=== PATIENT | female | born 1945 | race Asian ===

== ENCOUNTER → 2017-04-28 | Day surgery (SDC) | payer BC ==
--- NOTE | 2017-04-30 08:05 | PATH ---
Cytology Non-Gynecological Report Patient Name: ZEB BUENO [facility] Rec. #: [id number] /Age/Gender: 1945 (Age: 71) / F Account: [id number] Location: RADIOLOGY Taken: 04/28/2017 Received: 04/28/2017 Reported: 04/30/2017 Physicians: Richard Keller M.D. Specimen(s) Received LEFT THYROID FNA Clinical History Left thyroid nodule, 2.4 x 2.0 x 1.8 cm Final Diagnosis THYROID GLAND, LEFT LOBE, US GUIDED FINE NEEDLE ASPIRATION BIOPSY: LOW CELLARITY, SATISFACTORY FOR EVALUATION DUE TO THE PRESENCE OF COLLOID. SCATTERED FOLLICULAR EPITHELIAL CELLS WITH HURTHLE CELL CHANGE, CYST LINING CELLS, COLLOID AND NUMEROUS MACROPHAGES, MOST CONSISTENT WITH NODULAR GOITER WITH CYSTIC CHANGE (BETHESDA CATEGORY II, BENING), SEE COMMENT. Comment: The smears and the cell block show scattered follicular epithelial cells with Hurthle cell (oncocytic) change, cyst lining cells and colloid; numerous macrophages are present indicative of cystic change. The findings are most consistent with nodular goiter with cystic change. Clinical and imaging correlations are suggested. Electronically Signed J Carlos Johnson M.D. Gross Description Received are four air dried smears, four smears in 95% alcohol, and 20 cc of bloody fluid in formalin. Four diff-quik stained slides, four Pap stained slides and one cell block are made.
== END | disposition home or self-care (01) ==
LOC: JRADIR 09:00
PROVIDERS: ATTEND Internal Medicine Endocrinology, Diabetes & Metabolism
PROC: 0GBG3ZX Excision of Left Thyroid Gland Lobe, Percutaneous Approach, Diagnostic (ICD-10-PCS; principal; 2017-04-28)
PROC: BG44ZZZ Ultrasonography of Thyroid Gland (ICD-10-PCS; 2017-04-28)
DX: E04.1 Nontoxic single thyroid nodule (principal)
CPT/HCPCS: 10022; 76942; 88173; 88305-TC

== ENCOUNTER 2017-06-23 09:09 | Day surgery (SDC) | payer BC ==
[2017-06-19 10:29] VITALS: BMI 25.7
--- NOTE | 2017-06-23 11:35 | HP ---
History & Physical Update - History History: No Change - Physical Physical: No Change - Assessment Assessment: No Change - Plan Plan: No Change (Consent signed and witnessed)
[2017-06-23] MEDS ORDERED: SUCCINYLCHOLINE CHLORIDE 200 MG/10 ML VIAL ONE (11:59)
[2017-06-23] MEDS ORDERED: ONDANSETRON 4 MG/2 ML VIAL IVPB PRN (12:44)
[2017-06-23] MEDS ORDERED: IBUPROFEN 800 MG/8 ML IJ IVPB PRN (12:44)
[2017-06-23] MEDS ORDERED: IBUPROFEN 600 MG TABLET (FP) PO PRN (12:44)
[2017-06-23] MEDS ORDERED: ELECTROLYTE-148 SOLN 1,000 ML IV SCH (12:45)
[2017-06-23] MEDS ORDERED: PROMETHAZINE HCL 25 MG/1 ML VIAL IVPUSH PRN (12:52)
[2017-06-23] MEDS ORDERED: oxyCODONE HCL 5 MG TABLET PO PRN (12:52)
--- NOTE | 2017-06-23 12:53 | OP ---
Operative Note - Note: Operative Date: 06/23/17 Pre-Operative Diagnosis: 71yo P4 with 11mm endometrium, negative endometrial biopsy Operation: Hysteroscopy/Polypectomy/D&C Findings: 1. 2.5cm posterior endometrial wall polyp 2. R ostia 1cm polyp 3. L lower uterine segment lateral 1cm polyp 4. Bl ostia visualized Post-Operative Diagnosis: Same as Pre-op (multiple endometrial polyps) Surgeon: Maribel Mcdaniel Anesthesiologist/WRAPPER COUNTER: Jonelle Milsl MD Anesthesia: General Specimens Removed: 1. Engometrial polyps x 3 removed with Pérez-Clear device. 2. Endometrial curettings Estimated Blood Loss (mls): 0 Instrument used (Debridements only): Pérez-Clear Drains, Volume Out (mls): 150 Fluid Volume Replaced (mls): 500 Operative Report Dictated: Yes
[2017-06-23 14:23] VITALS: TEMP 97.8
[2017-06-23 15:47] VITALS: BP 170/59; PULSE 59
--- NOTE | 2017-06-24 13:00 | PATH ---
Surgical Pathology Report Patient Name: ZEB BUENO [facility]. Rec. #: [id number] /Age/Gender: 1945 (Age: 71) / F Account: [id number] Location: [facility] SURGICAL Taken: 06/23/2017 Received: 06/23/2017 Reported: 06/24/2017 Physicians: Maribel Mcdaniel M.D. Specimen(s) Received A: ENDOMETRIAL CURETTINGS B: ENDOMETRIAL POLYPS 3 Clinical History Endometrial thickening Final Diagnosis A. ENDOMETRIUM, CURETTING: GLANDULAR EPITHELIUM CONSISTENT WITH ATROPHIC ENDOMETRIUM, ALONG WITH ABUNDANT MUCINOUS MATERIAL, ENDOCERVICAL EPITHELIUM, AND SQUAMOUS EPITHELIUM. NO ENDOMETRIAL HYPERPLASIA OR CARCINOMA IDENTIFIED. B. ENDOMETRIUM, POLYPECTOMY: BENIGN ENDOMETRIAL POLYP. Electronically Signed Shilo Fitch M.D. Gross Description A. Received in formalin labelled "endometrial curetting" is a 2.0 x 2.0 x 0.3 cm aggregate of mucoid material with shay tissue fragments. Totally submitted in one cassette. B. Received in formalin labelled "endometrial polyps " is a 0.4 cm greatest dimension aggregate of vallejo material. Totally submitted in one cassette [facility]/06/23/2017 [facility]/06/23/2017
--- NOTE | 2017-06-25 08:35 | OP ---
DATE OF OPERATION: 06/23/2017 PREOPERATIVE DIAGNOSIS: A 71-year-old para 4 with 11-mm thickened endometrium and negative endometrial biopsy. POSTOPERATIVE DIAGNOSES: 1. A 71-year-old para 4 with 11-mm thickened endometrium and negative endometrial biopsy. 2. Finding of 3 endometrial polyps. OPERATION: Hysteroscopy, polypectomy, dilatation and curettage. FINDINGS: A 2.5-cm posterior endometrial wall polyp, right ostia 1-cm polyp, and left lower uterine segment lateral 1-cm polyp. Bilateral ostia visualized. SURGEON: Maribel Mcdaniel MD ANESTHESIOLOGIST: Jonelle Mills MD ANESTHESIA: General. SPECIMENS REMOVED: Endometrial polyps x3 with TruClear device, and second specimen was endometrial curettings. DESCRIPTION OF OPERATIVE PROCEDURE: After ensuring informed consent, patient was brought to the operating room where she was placed in dorsal lithotomy position. Perineum and vagina were prepped in a sterile fashion, and patient was draped. The TruClear hysteroscope device was assembled, white balanced, and ready for use. The [place] speculums were placed into the vagina, and anterior cervical lip was articulated with a single-tooth tenaculum. Cervix was gradually dilated with increasing-in- size dilators to accommodate 5-mm hysteroscope. The hysteroscope was introduced atraumatically, and intrauterine contents were surveyed. The above findings were discovered. TruClear device was placed through the surgical port, and approximately 1 minute was spent to removing all 3 polyps with TruClear resectoscope. All of the intrauterine contents were resected polyps, were suctioned and sent to Pathology. Hysteroscope was removed from the uterus, and sharp curettage was performed with the serrated sharp curette. Endometrial curettings were sent to Pathology as well. All instruments and sponges were removed from the vagina. Instrument count was correct x2. Patient was placed back into the supine position, extubated, and brought to the recovery room in stable condition. Estimated blood loss 0 mL. Patient's urine was drained, 150 mL, intraoperatively, and patient received 500 mL of Plasmalyte. Patient tolerated the procedure well and was brought to the recovery room in stable condition. Richard [id number] MTDD
== END 2017-06-23 15:47 | disposition home or self-care (01) ==
LOC: JASU-SURG 09:09
PROVIDERS: ATTEND Obstetrics & Gynecology
PROC: 0UB98ZX Excision of Uterus, Via Natural or Artificial Opening Endoscopic, Diagnostic (ICD-10-PCS; principal; 2017-06-23 11:00)
PROC: 0UDB8ZX Extraction of Endometrium, Via Natural or Artificial Opening Endoscopic, Diagnostic (ICD-10-PCS; 2017-06-23 11:00)
DX: N84.0 Polyp of corpus uteri (principal); R93.8 Abnormal findings on diagnostic imaging of other specified body structures
CPT/HCPCS: 71020-TC; 88305-TC; 94760

== ENCOUNTER → 2018-11-27 | Emergency (ER) | payer BC ==
[~2018-11-27] MED LIST: ACETAMINOPHEN 1000 MG/100 ML VIAL (NON FORMULARY) IVPB ONE; ACETAMINOPHEN INJECTION 100 ML IVPB ONE; LOSARTAN 50MG/HCTZ 12.5MG 1 TAB (FP) PO ONE; SODIUM CHLORIDE 0.9% 500 ML INFUS.BAG IV ONE
[2018-11-27 12:04] VITALS: BMI 25.2
--- NOTE | 2018-11-27 12:58 | PDOC ---
History of Present Illness - General Chief Complaint: Weakness Stated Complaint: WEAKNESS,DIZZINESS Time Seen by Provider: 11/27/18 12:33 History Source: Patient - History of Present Illness Initial Comments: 11/27/18 13:40 The patient is a 73 year old Tajik speaking female with a PMH of HTN, HLD-- who presents to our ED c/o acute onset of vertigo. Daughter and son @ bedside assist in translation and history. Symptoms started suddenly while patient was in the kitchen cooking. Endorse 1-2 episodes of NBNB emesis. Symptoms resolved within 20 minutes, however patient now c/o headache. Denies any chest pain, shortness of breath, numbness, tingling. Similar symptoms five years previous for which patient was evaluated at our ED. The patient denies shortness of breath, abdominal pain, nausea/vomiting, diarrhea/constipation NKDA Surgical Social: denies toxic habits Past History - Past Medical History Allergies/Adverse Reactions: Allergies Allergy/AdvReac Type Severity Reaction Status Date / Time No Known Allergies Allergy Verified 11/27/18 11:58 Home Medications: Ambulatory Orders Atorvastatin Ca [Lipitor (Restricted To Cardiology)] 40 mg PO HS 02/08/13 [place]-3 Acid Ethyl Esters [Lovaza] 1,000 mg PO BID 02/08/13 Losartan/Hydrochlorothiazide [Losartan-Hctz 50-12.5 mg Tab] 1 each PO DAILY Amlodipine Besylate [Norvasc -] 2.5 mg PO DAILY 06/23/17 Aspirin/Calcium Carbonate/Mag [Aspirin Buffered 325 mg Tab] 325 mg PO DAILY Multivit-Min/Iron/Folic/Lutein [Centrum Silver Women Tablet] 1 each PO DAILY Vit C/E/Zn/Coppr/Lutein/Zeaxan [Preservision Areds 2 Softgel] 2 each PO DAILY Anemia: No Asthma: No Cancer: No Cardiac Disorders: Yes (BYPASS) CVA: No COPD: No CHF: No Dementia: No Diabetes: No GI Disorders: No Disorders: No HTN: Yes Hypercholesterolemia: Yes Liver Disease: No Seizures: No Thyroid Disease: No - Surgical History Abdominal Surgery: No Appendectomy: No Cardiac Surgery: Yes (bypass 2 YRS AGO) Cholecystectomy: No Lung Surgery: No Neurologic Surgery: No Orthopedic Surgery: No - Immunization History Immunization Up to Date: Yes - Suicide/Smoking/Psychosocial Hx Smoking Status: No Smoking History: Never smoked Have you smoked in the past 12 months: No Number of Cigarettes Smoked Daily: 0 Hx Alcohol Use: No Drug/Substance Use Hx: No Substance Use Type: None Hx Substance Use Treatment: No Review of Systems - Review of Systems Constitutional: No: Chills, Fever HEENTM: No: Blurred Vision, Double Vision, Tinnitus, Hearing Loss Respiratory: No: Cough, Shortness of Breath Cardiac (ROS): No: Chest Pain, Lightheadedness, Palpitations, Syncope ABD/GI: Yes: Vomiting. No: Constipated, Diarrhea, Nausea : No: Burning, Dysuria Neurological: Yes: Headache, Dizziness. No: Numbness, Tingling, Unsteady Gait *Physical Exam - Vital Signs Last Vital Signs Temp Pulse Resp BP Pulse Ox 97.3 F L 75 18 201/70 H 99 11/27/18 11:56 11/27/18 11:56 11/27/18 11:56 11/27/18 11:56 11/27/18 11:56 - Physical Exam General Appearance: Yes: Nourished, Appropriately Dressed HEENT: positive: EOMI, ALEJANDRA, Normal Voice, Hearing Grossly Normal. negative: TM Bulging, TM Dull, TM Erythema Neck: positive: Trachea midline, Supple Respiratory/Chest: positive: Lungs Clear, Normal Breath Sounds Cardiovascular: positive: Regular Rate, S1, S2. negative: Edema, JVD Vascular Pulses: Dorsalis-Pedis (R): 2+, Doralis-Pedis (L): 2+ Gastrointestinal/Abdominal: positive: Normal Bowel Sounds, Soft Extremity: positive: Normal Capillary Refill, Normal Inspection Integumentary: positive: Normal Color, Dry, Warm Neurologic: positive: Fully Oriented, Alert, Motor Strength 5/5, Responsive, Finger to Nose. negative: Facial Droop, Numbness, Confused, Disoriented Moderate Sedation - Procedure Monitoring Vital Signs: Procedure Monitoring Vital Signs Temperature 97.3 F L 11/27/18 11:56 Pulse Rate 75 11/27/18 11:56 Respiratory Rate 18 11/27/18 11:56 Blood Pressure 201/70 H 11/27/18 11:56 O2 Sat by Pulse Oximetry (%) 99 11/27/18 11:56 Heart Score/ECG Review - ECG Impressions Comment:: 11/27/18 16:22 HR 72, TWI in anterior leads V1-V3 c/w previous ECG, no SENAIT/STD ED Treatment Course - LABORATORY CBC & Chemistry Diagram: 11/27/18 15:07 11/27/18 15:07 - RADIOLOGY Radiology Studies Ordered: Category Date Time Status HEAD CT WITHOUT CONTRAST [CT] Stat CT Scan 11/27/18 12:56 Ordered Medical Decision Making - Medical Decision Making 11/27/18 13:45 73 year old female with resolved vertinginous episode. Hypertense (201/70) @ presentation. No focal neurologic deficit on exam. NIHSS 1. Frontal diagnosis : cerebellar infarct vs. CVA/TIA vs. vertigo 2/2 to dehydration, electrolyte derangement. Will obtain CT Head, labs, EKG, Troponin x1, Reassess. 189/56 11/27/18 14:[address] negative 11/27/18 15:02 Repeat BP 166/68 Will give OTD of home BP medications 11/27/18 16:01 Labs show mild hyponatremia (134) 11/27/18 16:12 ECG shows Sinus Rhythm HR 72, with 1st degree AV block, ECG shows TWI in V1-V3, c/w previous ECG 11/27/18 16:22 UA clean Repeat BP 161/58 - patient will follow-up with PMD. Clinical Impression: Resolved vertigo I discussed the physical exam findings, ancillary test results and final diagnoses with the patient. I answered all of the patient's questions. The patient was satisfied with the care received and felt comfortable with the discharge plan and treatment plan. The patient will return to the Emergency Department with any new, persistent or worsening symptoms. *DC/Admit/Observation/Transfer Diagnosis at time of Disposition: Vertigo - Discharge Dispostion Disposition: HOME Condition at time of disposition: Good Decision to Admit order: No - Referrals Referrals: John Burdick MD [Primary Care Provider] - - Patient Instructions Printed Discharge Instructions: DI for Vertigo, DI for Neck Pain Additional Instructions: You were evaluated today for your dizziness. A cat scan of your head, your labs and your urine showed no concerning findings. At this time you are safe for discharge home. Please make an appointment to follow up with your primary care doctor for evaluation including assessment of your neck pain. You can take Motrin (up to 3200 mg daily) alternating w/ Tylenol (up to 4000 mg daily) for your pain. Return to the Emergency Department for any new/worsening/concerning symptoms. - Post Discharge Activity
--- NOTE | 2018-11-27 12:59 | PDOC ---
NIH Stroke Scale - Initial Evaluation Level of consciousness: Alert Ask patient the month and their age: Answers both correctly Ask patient to open & close eyes; make fist and let go: Obeys both correctly Best gaze (horizontal eye movement): Normal Visual field testing: No visual field loss Facial paresis (Show teeth/raise eyebrows/close eyes tight): Normal symmetrical movement Motor Function: Left Arm: Normal Motor Function: Right Arm: Normal (extends arm 90 (or 45) degrees for 10 seconds without drift Motor Function: Left Leg: Normal (extends leg 30 degrees for 5 seconds without drift) Motor Function: Right Leg: Normal (extends leg 30 degrees for 5 seconds without drift) Limb Ataxia: No ataxia Sensory(Use pinprick test arms,legs,trunk,face/side to side): Normal Best language (Describe picture, name items, read sentences): No Aphasia Dysarthria (read several words): Normal articulation Extinction and Inattention: No abnormality - Total Score NIH Stroke Scale Score: 0
[2018-11-27 15:01] LABS: URINE APPEARANCE CLEAR; URINE BILIRUBIN NEGATIVE (<2.0 mg/dL); URINE COLOR STRAW; URINE GLUCOSE (UA) NEGATIVE (NEGATIVE); URINE KETONE NEGATIVE (NEGATIVE); URINE LEUK ESTERASE NEGATIVE (NEGATIVE); URINE NITRITE NEGATIVE (NEGATIVE); URINE PROTEIN NEGATIVE (NEGATIVE); URINE UROBILINOGEN NEGATIVE mg/dL (0.2-1.0)
--- NOTE | 2018-11-27 15:10 | PDOC ---
Attending Attestation - HPI HPI: 11/27/18 16:00 73 y/o female presents to ED with son and daughter for evaluation of sudden onset of dizziness, with nausea and vomiting and now headache. Pt with h/o htn, hypothyroidism and vertigo. Pt did not take any pf her meds today, Pt is non toxic in appearance, folowing comands, feels a little better at present - Physicial Exam PE: 11/27/18 16:02 HEENT: NCAT, CHYNA, EOMI, no nystagmus Neck: supple Lungs: + bs krystal cta Heart: s1S2 regular Abd: + bs abd soft no guarding or tenderness Ext; + bs abd soft no guarding or tenderness Neuro: alert and oriented x3, britton's , no focal deficits, possible slight pronator drift on left side, nl finger t nose, cn 2-12 grossly intact - Medical Decision Making 11/27/18 16:04 73 y/o female here in ED for eval of sudden onset of dizziness started while cooking today. Pt with NIHSS of 0 or possibly one for slight drift will obtain ct of head, cbc, cmp, ekg, trop, cxr , and reevaluated. Pt's b/pactually improved with no intervention, After ct resultes reviewed, pt given her regular dose of losartan. Pt was feeling better ,pt ambulated in ED by Resident and pt stable for dc home with out pt f/u with pcp 11/27/18 16:06 11/27/18 23:44
[2018-11-27 15:17] VITALS: BP 130/88; PULSE 80; TEMP 98.3
[2018-11-27 15:18] LABS: BASO % 0.4 % (0-2.0); EOS % 0.8 % (0-4.5); HEMOGLOBIN 11.8 GM/dL (10.7-15.3); LYMPH % 18.7 % (8-40); MCH 30.4 pg (25.7-33.7); MCHC 35.7 g/dl (32.0-36.0); MEAN PLT VOLUME 7.1 fl (7.5-11.1); MONO % 3.3 % (3.8-10.2); NEUT % 76.8 % (42.8-82.8); PLATELET COUNT 276 K/MM3 (134-434); RBC 3.88 M/mm3 (3.60-5.2); RDW 13.5 % (11.6-15.6); WHITE BLOOD COUNT 8.4 K/mm3 (4.0-10.0)
[2018-11-27 15:50] LABS: ANION GAP 7 MMOL/L (8-16); BLOOD UREA NITROGEN 22 mg/dL (7-18); CALCIUM 8.4 mg/dL (8.5-10.1); CHLORIDE 99 mmol/L (98-107); CO2 29 mmol/L (21-32); GLUCOSE,RANDOM 98 mg/dL (74-106); POTASSIUM 4.3 mmol/L (3.5-5.1); SODIUM 134 mmol/L (136-145)
[2018-11-27 15:51] LABS: ALBUMIN 3.6 g/dl (3.4-5.0); ALK PHOS 90 U/L (45-117); BILIRUBIN,TOTAL 0.4 mg/dL (0.2-1); MAGNESIUM 2.1 mg/dL (1.8-2.4); SGOT/AST 28 U/L (15-37); SGPT/ALT 27 U/L (13-61); TOT PROT 7.5 g/dl (6.4-8.2)
--- NOTE | 2018-11-28 11:27 | EKG ---
Test Reason : Blood Pressure : / mmHG Vent. Rate : 072 BPM Atrial Rate : 072 BPM P-R Int : 220 ms QRS Dur : 086 ms QT Int : 396 ms P-R-T Axes : 066 032 021 degrees QTc Int : 433 ms SINUS RHYTHM WITH 1ST DEGREE A-V BLOCK NONSPECIFIC T WAVE ABNORMALITY ABNORMAL ECG WHEN COMPARED WITH ECG OF 28-DEC-2015 20:33, PREMATURE ATRIAL COMPLEXES ARE NO LONGER PRESENT TX INTERVAL HAS INCREASED NONSPECIFIC T WAVE ABNORMALITY NO LONGER EVIDENT IN LATERAL LEADS Confirmed by REENA WOOD MD ([id number]) on 11/28/2018 11:27:00 AM Referred By: Confirmed By:REENA WOOD MD
== END | disposition home or self-care (01) ==
LOC: JER 11:43
PROC: 3E033NZ Introduction of Analgesics, Hypnotics, Sedatives into Peripheral Vein, Percutaneous Approach (ICD-10-PCS; principal; 2018-11-27)
DX: R42 Dizziness and giddiness (principal); I25.10 Atherosclerotic heart disease of native coronary artery without angina pectoris; I10 Essential (primary) hypertension; Z95.1 Presence of aortocoronary bypass graft; E87.1 Hypo-osmolality and hyponatremia
CPT/HCPCS: 36415; 70450-TC; 80053; 81003; 82550; 83735; 84484; 85025; 87086; 87186; 93005; 93010; 99284-25; J0131

== ENCOUNTER 2019-04-04 20:03 | Emergency (ER) | payer OTHER, BC ==
[2019-04-04 20:08] VITALS: TEMP 97.6; BMI 23.3
--- NOTE | 2019-04-04 21:08 | PDOC ---
History of Present Illness - General Chief Complaint: Headache Stated Complaint: HIGH BLOOD PRESURE Time Seen by Provider: 04/04/19 21:03 History Source: Patient - History of Present Illness Initial Comments: 04/04/19 21:22 The patient is a 73 year old female with a PMH of Hypothyroidism, Vertigo, Tinnitus, CAD (s/p CABG in 2012) and hearing loss presents to our ED c/o 2-3 day h/o weakness. Patient states for the last few days she has had less energy though she is able to complete her ADL's. Denies associated shortness of breath or chest pain. Was evaluated at her ENT office today for her tinnitus and pressure was noted to be 180/100 and she decided to come to the ED. MRI in Denies any recent weight loss, appetite changes, medication changes, abdominal pain, nausea/vomiting, diarrhea/constipation, dysuria/hematuria. NKDA Surgical: CABG Social: denies toxic habits PMD: Dr. Burdick As per EMR, MRI on 02/22/19 negative for acute ischemia, hemmorhage or demylination. Patient last evaluated in our ED in 10/2018 for a c/o weakness with associated emesis. Head CT and labs negative at that time. Past History - Past Medical History Allergies/Adverse Reactions: Allergies Allergy/AdvReac Type Severity Reaction Status Date / Time No Known Allergies Allergy Verified 04/04/19 20:08 Home Medications: Ambulatory Orders Atorvastatin Ca [Lipitor (Restricted To Cardiology)] 40 mg PO HS 02/08/13 [place]-3 Acid Ethyl Esters [Lovaza] 1,000 mg PO BID 02/08/13 Losartan/Hydrochlorothiazide [Losartan-Hctz 50-12.5 mg Tab] 1 each PO DAILY Amlodipine Besylate [Norvasc -] 2.5 mg PO DAILY 06/23/17 Aspirin/Calcium Carbonate/Mag [Aspirin Buffered 325 mg Tab] 325 mg PO DAILY Multivit-Min/Iron/Folic/Lutein [Centrum Silver Women Tablet] 1 each PO DAILY Vit C/E/Zn/Coppr/Lutein/Zeaxan [Preservision Areds 2 Softgel] 2 each PO DAILY Anemia: No Asthma: No Cancer: No Cardiac Disorders: Yes (BYPASS) CVA: No COPD: No CHF: No Dementia: No Diabetes: No GI Disorders: No Disorders: No HTN: Yes Hypercholesterolemia: Yes Liver Disease: No Seizures: No Thyroid Disease: No - Surgical History Abdominal Surgery: No Appendectomy: No Cardiac Surgery: Yes (bypass 2 YRS AGO) Cholecystectomy: No Lung Surgery: No Neurologic Surgery: No Orthopedic Surgery: No - Immunization History Immunization Up to Date: Yes - Suicide/Smoking/Psychosocial Hx Smoking Status: No Smoking History: Never smoked Have you smoked in the past 12 months: No Number of Cigarettes Smoked Daily: 0 Hx Alcohol Use: No Drug/Substance Use Hx: No Substance Use Type: None Hx Substance Use Treatment: No Review of Systems - Review of Systems Constitutional: No: Chills, Fever HEENTM: No: Recent change in vision Respiratory: No: Cough, Shortness of Breath Cardiac (ROS): No: Chest Pain, Lightheadedness, Palpitations, Syncope ABD/GI: No: Constipated, Diarrhea, Nausea, Vomiting *Physical Exam - Vital Signs Last Vital Signs Temp Pulse Resp BP Pulse Ox 97.6 F 78 18 124/67 99 04/04/19 20:05 04/04/19 20:05 04/04/19 20:05 04/04/19 20:05 04/04/19 20:05 - Physical Exam Comments: 04/04/19 22:25 Awake, alert CV: S1, S2 no M/R/G Respiratory: CLTA B/L, no wheeze, no crack Neuro: [place]-Hallpike negative, A&O x3, no focal neurologic deficit B/L Abdomen: soft, no TTP, (+) BS ED Treatment Course - LABORATORY CBC & Chemistry Diagram: 04/04/19 21:55 04/04/19 21:55 Medical Decision Making - Medical Decision Making 04/04/19 22:26 73 year old female with 2-3 day h/o weakness. VS unremarkable. H/o hypertensive episode (180/100) earlier today. Recent brain MRI negative. Will r/o ACS, electrolyte derangement, anemia. IV hydration. Low clinical suspicion for CVA/TIA given patient's clinical presentation and h/o negative MRI on 03/25/19. 04/04/19 22:29 Patient reassessed @ bedside. Symptomatically improved CBC shows no anemia CMP, Troponin EKG, CXR pending 04/04/19 22:46 Mildly hyponatremic (130) Troponin negative EKG non-ischemic as documented in EKG section of EMR CXR shows no consolidation/infiltrate/effusion Will discharge home with return precautions and PMD follow-up for further evaluation. Neurology referral provided for headaches. Clinical Impression: Weakness possibly 2/2 to mild hyponatremia I discussed the physical exam findings, lab results, diagnoses with the patient. The patient understood her discharge instructions and will follow up with her primary care doctor for further evaluation. Patient will return to the Emergency Department for any new/worsening/concerning symptoms. *DC/Admit/Observation/Transfer Diagnosis at time of Disposition: Weakness - Discharge Dispostion Disposition: HOME Condition at time of disposition: Good Decision to Admit order: No - Referrals Referrals: John Burdick MD [Primary Care Provider] - Addison Simon MD [Staff Physician] - - Patient Instructions Printed Discharge Instructions: DI for Headache Additional Instructions: You were evaluated today for your weakness. All of your labs, a chest x-ray and an EKG showed no findings concerning for a medical emergency At this time you are safe for discharge home. We have provided a referral to a neurologist for your headaches. You can also call your insurance company for a list of doctors. Please make a follow up appointment within 3 days with your primary care doctor. Your care is not complete until you are evaluated by a primary care doctor. Return to the Emergency Department for any new/worsening/concerning symptoms. - Post Discharge Activity
[2019-04-04] MEDS ORDERED: ACETAMINOPHEN 1000 MG/100 ML VIAL (NON FORMULARY) IVPB ONE (21:22)
[2019-04-04] MEDS ORDERED: SODIUM CHLORIDE 0.9% 500 ML INFUS.BAG IV ONE (21:22)
[2019-04-04] MEDS ORDERED: ACETAMINOPHEN INJECTION 100 ML IVPB ONE (21:42)
[2019-04-04 22:11] LABS: BASO % 0.5 % (0-2.0); EOS % 2.3 % (0-4.5); HEMATOCRIT 35.1 % (32.4-45.2); HEMOGLOBIN 11.7 GM/dL (10.7-15.3); LYMPH % 32.6 % (8-40); MCH 28.9 pg (25.7-33.7); MCHC 33.4 g/dl (32.0-36.0); MEAN CELL VOLUME 86.4 fl (80-96); MEAN PLT VOLUME 7.2 fl (7.5-11.1); MONO % 7.2 % (3.8-10.2); NEUT % 57.4 % (42.8-82.8); PLATELET COUNT 298 K/MM3 (134-434); RBC 4.07 M/mm3 (3.60-5.2); RDW 13.5 % (11.6-15.6)
[2019-04-04 22:31] LABS: MAGNESIUM 1.9 mg/dL (1.8-2.4)
[2019-04-04 22:40] LABS: ALBUMIN 3.7 g/dl (3.4-5.0); ALK PHOS 88 U/L (45-117); ANION GAP 9 MMOL/L (8-16); BILIRUBIN,TOTAL 0.3 mg/dL (0.2-1); BLOOD UREA NITROGEN 18 mg/dL (7-18); CALCIUM 9.3 mg/dL (8.5-10.1); CHLORIDE 96 mmol/L (98-107); CO2 26 mmol/L (21-32); CREATININE 0.8 mg/dL (0.55-1.3); GLUCOSE,RANDOM 96 mg/dL (74-106); SGOT/AST 23 U/L (15-37); SGPT/ALT 22 U/L (13-61); SODIUM 130 mmol/L (136-145); TOT PROT 7.8 g/dl (6.4-8.2)
--- NOTE | 2019-04-04 23:47 | PDOC ---
Documentation entered by Autumn Lloyd SCRIBE, acting as scribe for Raquel Brownlee MD. Raquel Brownlee MD: This documentation has been prepared by the Gabino cooley Xhesika, SCRIBE, under my direction and personally reviewed by me in its entirety. I confirm that the documentation accurately reflects all work, treatment, procedures, and medical decision making performed by me. Attending Attestation - Resident Resident Name: Dianelys Anand - ED Attending Attestation I have performed the following: I have examined & evaluated the patient, The case was reviewed & discussed with the resident, I agree w/resident's findings & plan, Exceptions are as noted - HPI HPI: 04/04/19 21:47 The patient is a 73 year old female, with a significant past medical history of Hypothyroidism, Vertigo, CAD (s/p CABG in 2012) and hearing loss who presents to the emergency department with 3 days of weakness. The patient states she has been experiencing less energy, however, she is able to complete her ADL's. The patient was at her ENTs office today for vertigo and her blood pressure was 180/100 prompting her arrival to the ED. The patient denies shortness of breath, chest pain headache or dizziness. The patient denies fever, chills, nausea, vomit, diarrhea or constipation. The patient denies dysuria, frequency, urgency or hematuria. Allergies: NKDA. Past surgical history: CABG Social history: No reported drug or cigarette use. PCP: Dr. Burdick - Physicial Exam PE: 04/04/19 21:47 GENERAL: Awake, alert, and fully oriented, in no acute distress HEAD: No signs of trauma EYES: PERRLA, EOMI, sclera anicteric, conjunctiva clear ENT: Auricles normal inspection, hearing grossly normal, nares patent, oropharynx clear without exudates. Moist mucosa NECK: Normal ROM, supple, no lymphadenopathy, JVD, or masses LUNGS: Breath sounds equal, clear to auscultation bilaterally. No wheezes, and no crackles HEART: Regular rate and rhythm, normal S1 and S2, no murmurs, rubs or gallops ABDOMEN: Soft, nontender, normoactive bowel sounds. No guarding, no rebound. No masses EXTREMITIES: Normal range of motion, no edema. No clubbing or cyanosis. No cords, erythema, or tenderness NEUROLOGICAL: Cranial nerves II through XII grossly intact. Normal speech, normal gait - Medical Decision Making 04/04/19 23:43 this 73 yo female was at ENT's office for check up and she complained of headache and at that time her BP was elevated By the time she arrived at the ER her blood pressure was normal and her headache had resolved -she had a brain MRI this January and it was negative for any masses,swelling, bleeds,infarcts her labs were essentially unremarkable pt will followup with neurology for her headaches
[2019-04-05] MEDS ORDERED: amLODIPine BESYLATE 2.5 MG TABLET (FP) PO ONE (00:38)
[2019-04-05] MEDS ORDERED: amLODIPine BESYLATE 5 MG TABLET (FP) ONE (00:44)
[2019-04-05 00:45] VITALS: BP 192/76; PULSE 73
--- NOTE | 2019-04-05 11:38 | EKG ---
Test Reason : Blood Pressure : / mmHG Vent. Rate : 085 BPM Atrial Rate : 085 BPM P-R Int : 226 ms QRS Dur : 080 ms QT Int : 356 ms P-R-T Axes : 064 053 015 degrees QTc Int : 423 ms SINUS RHYTHM WITH 1ST DEGREE A-V BLOCK LOW VOLTAGE QRS NONSPECIFIC ST AND T WAVE ABNORMALITY ABNORMAL ECG Confirmed by Julian Hernandez MD ([id number]) on 04/05/2019 11:37:48 AM Referred By: Confirmed By:Julian Hernandez MD
== END 2019-04-05 01:00 | disposition home or self-care (01) ==
LOC: JER 20:03
PROC: 3E033NZ Introduction of Analgesics, Hypnotics, Sedatives into Peripheral Vein, Percutaneous Approach (ICD-10-PCS; principal; 2019-04-04)
DX: R53.1 Weakness (principal); E87.1 Hypo-osmolality and hyponatremia; I25.10 Atherosclerotic heart disease of native coronary artery without angina pectoris; I10 Essential (primary) hypertension; Z95.1 Presence of aortocoronary bypass graft; E78.00 Pure hypercholesterolemia, unspecified; H91.90 Unspecified hearing loss, unspecified ear; H93.19 Tinnitus, unspecified ear
CPT/HCPCS: 36415; 71046-TC-FY; 80053; 82550; 83735; 84443; 84484; 85025; 93005; 93010; 96374; 99283-25; J0131

== ENCOUNTER 2019-04-06 11:51 | Emergency (ER) | payer OTHER, BC ==
[2019-04-06 11:58] VITALS: TEMP 97.8; BMI 24.2
--- NOTE | 2019-04-06 14:45 | PDOC ---
History of Present Illness - General Chief Complaint: Lightheaded Stated Complaint: HYPERTENSION Time Seen by Provider: 04/06/19 13:02 History Source: Family, Spouse - History of Present Illness Initial Comments: 04/06/19 14:51 73 yo F with a PMHx of Hypothyroidism, Vertigo, Tinnitus, CAD (s/p CABG in 2012 ) presents to ER with complaint of lightheadedness and high blood pressure. She was seen in ER two days prior for the same issue. She states that for the past few months she has been awakening feeling lightheaded with headache and when she checks her BP it is approx. 180/90. Today her in ER BP is 140/79 and she is completely asymptomatic. However she is concerned about these high blood pressures. She denies CP, DAVIS, palpitations, SOB, abdominal pain, nausea, vomiting, fever or chills. Past History - Travel Traveled outside of the country in the last 30 days: No Close contact w/someone who was outside of country & ill: No - Past Medical History Allergies/Adverse Reactions: Allergies Allergy/AdvReac Type Severity Reaction Status Date / Time No Known Allergies Allergy Verified 04/06/19 11:53 Home Medications: Ambulatory Orders Harriet-3 Acid Ethyl Esters [Lovaza] 1,000 mg PO BID 02/08/13 Losartan/Hydrochlorothiazide [Losartan-Hctz 50-12.5 mg Tab] 1 each PO DAILY Multivit-Min/Iron/Folic/Lutein [Centrum Silver Women Tablet] 1 each PO DAILY Vit C/E/Zn/Coppr/Lutein/Zeaxan [Preservision Areds 2 Softgel] 2 each PO DAILY Aspirin [Ecotrin] 81 mg PO DAILY 04/06/19 Cholecalciferol (Vitamin D3) [Vitamin D3 -] 0 unit PO DAILY 04/06/19 Levothyroxine [Synthroid -] 88 mcg PO DAILY 04/06/19 Losartan Potassium 100 mg PO DAILY 04/06/19 Ranitidine HCl [Zantac] 150 mg PO DAILY 04/06/19 Anemia: No Asthma: No Cancer: No Cardiac Disorders: Yes (BYPASS) CVA: No COPD: No CHF: No Dementia: No Diabetes: No GI Disorders: No Disorders: No HTN: Yes Hypercholesterolemia: Yes Liver Disease: No Seizures: No Thyroid Disease: No - Surgical History Abdominal Surgery: No Appendectomy: No Cardiac Surgery: Yes (bypass 2 YRS AGO) Cholecystectomy: No Lung Surgery: No Neurologic Surgery: No Orthopedic Surgery: No - Immunization History Immunization Up to Date: Yes - Suicide/Smoking/Psychosocial Hx Smoking Status: No Smoking History: Never smoked Have you smoked in the past 12 months: No Number of Cigarettes Smoked Daily: 0 Hx Alcohol Use: No Drug/Substance Use Hx: No Substance Use Type: None Hx Substance Use Treatment: No Review of Systems - Review of Systems HEENTM: Yes: Hearing Loss (chronic) Respiratory: No: Cough, SOB with Exertion, SOB at Rest, Wheezing Cardiac (ROS): No: Chest Pain, Edema, Lightheadedness, Palpitations, Chest Tightness Neurological: No: Headache, Weakness *Physical Exam - Vital Signs Last Vital Signs Temp Pulse Resp BP Pulse Ox 97.8 F 79 18 141/59 L 99 04/06/19 11:53 04/06/19 11:53 04/06/19 11:53 04/06/19 11:53 04/06/19 11:53 - Physical Exam General Appearance: Yes: Appropriately Dressed. No: Apparent Distress HEENT: positive: ALEJANDRA, Normal Voice Neck: positive: Supple. negative: Tender Respiratory/Chest: positive: Lungs Clear, Normal Breath Sounds. negative: Respiratory Distress, Accessory Muscle Use Cardiovascular: positive: Regular Rhythm, Regular Rate, S1, S2 Vascular Pulses: Dorsalis-Pedis (R): 2+, Doralis-Pedis (L): 2+ Gastrointestinal/Abdominal: positive: Normal Bowel Sounds. negative: Tender, Flat, Soft Musculoskeletal: negative: CVA Tenderness Neurologic: positive: early childhood educator aide II-XII NML intact, Fully Oriented, Alert, Normal Mood/ Affect, Motor Strength /5 Medical Decision Making - Medical Decision Making 04/06/19 14:56 73 yo F with a PMHx of Hypothyroidism, Vertigo, Tinnitus, CAD (s/p CABG in 2012 ) presents to ER with complaint of lightheadedness and high blood pressure. She is completely asymptomatic at this time and BP WNL. I have placed a call to Dr. Burdick office her primary and her dump motorman Dr. Bravo and explained her situation. Dr. Burdick and Dr. Bravo are both not available until next week. However Dr. Burdick's office has assured my that they will call Dr. Burdick and make him aware and call her with any recommendations. She is stable for discharge with follow up with Primary AKILAH. *DC/Admit/Observation/Transfer Diagnosis at time of Disposition: Hypertension - Discharge Dispostion Disposition: HOME Condition at time of disposition: Stable Decision to Admit order: No - Referrals Referrals: John Burdick MD [Primary Care Provider] - - Patient Instructions Printed Discharge Instructions: The DASH Diet Additional Instructions: Dr. Burdick's office will be contacting you for further recommendations. Increase activity as tolerated. resume low sodium heart healthy diet(DASH).Resume all meds as previously prescribed. If you experience worsening of symptoms, chest pain or stoke like symptoms please return to ER immediately. - Post Discharge Activity
--- NOTE | 2019-04-06 15:12 | PDOC ---
Documentation entered by Jes Pool SCRIBE, acting as scribe for Camilo Henderson MD. Camilo Henderson MD: This documentation has been prepared by the Yrn cooley Amanda, SCRIBE, under my direction and personally reviewed by me in its entirety. I confirm that the documentation accurately reflects all work, treatment, procedures, and medical decision making performed by me. Attending Attestation - Resident Resident Name: Rafa Zimmer - ED Attending Attestation I have performed the following: I have examined & evaluated the patient, The case was reviewed & discussed with the resident, I agree w/resident's findings & plan, Exceptions are as noted - HPI HPI: 04/06/19 14:14 The patient is a 73 year old female with a past medical history of Hypothyroidism, Vertigo, Tinnitus, CAD (s/p CABG in 2012) and hearing loss who presents to our ED with complaint of daily pressure like headache in the morning upon awakening. Pt notes that in the setting of hypertension. She states she recorded her BP this morning to be 170/90 about an hour after taking her Losartan. She believes that her headache is associated with her elevated BP. She was reportedly seen in the ED 3 days ago for same symptoms and given neuro f/u for her headache. She was instructed to f/u with her PMD for further management of her BP, but she states her PMD is out of town. In ED, pt's BP has improved to 140s systolic. Pt now denies any symptoms whatsoever. Denies DAVIS. She denies CP, SOB, palpitations, dizziness. She denies any recent weight loss, appetite changes, medication changes, abdominal pain, nausea/vomiting, diarrhea/ constipation, dysuria/hematuria. Allergies: NKDA Surgical: CABG Social: denies toxic habits PCP: Dr. Burdick - Physicial Exam PE: 04/06/19 14:46 GENERAL: Awake, alert, and fully oriented, in no acute distress. HEAD: No signs of trauma EYES: PERRLA, EOMI, sclera anicteric, conjunctiva clear ENT: Auricles normal inspection, hearing grossly normal, nares patent, oropharynx clear without exudates. Moist mucosa NECK: Nontender, no stepoffs, Normal ROM, supple, no lymphadenopathy, JVD, or masses LUNGS: Breath sounds equal, clear to auscultation bilaterally. No wheezes, and no crackles HEART: Regular rate and rhythm, normal S1 and S2, no murmurs, rubs or gallops ABDOMEN: Soft, nontender, normoactive bowel sounds. No guarding, no rebound. No masses EXTREMITIES: Normal range of motion, no edema. No clubbing or cyanosis. No cords, erythema, or tenderness NEUROLOGICAL: Cranial nerves II through XII intact. 5/5 strength and sensation in all extremities, Normal speech, normal gait, normal cerebellar function SKIN: Warm, Dry, normal turgor, no rashes or lesions noted. - Medical Decision Making 04/06/19 15:11 73 F with intermittent headache, now resolved. DAVIS likely related to poorly controlled BP as it occurs in the morning when her BP is often elevated. Pt now asymptomatic with normal vitals. Pt with normal neuro exam. - F/u PMD Pt is well appearing, with normal vitals. Clinically stable for DC at this time. I discussed the physical exam findings, ancillary test results and final diagnoses with the patient. I answered all of the patient's questions. The patient was satisfied with the care received and felt comfortable with the discharge plan and treatment plan. The patient agrees to follow up with the primary care physician within 24-72 hours.
[2019-04-06 15:49] VITALS: BP 186/79; PULSE 70
== END 2019-04-06 15:25 | disposition home or self-care (01) ==
LOC: JER 11:51
DX: I10 Essential (primary) hypertension (principal); I25.10 Atherosclerotic heart disease of native coronary artery without angina pectoris; Z95.1 Presence of aortocoronary bypass graft; E03.9 Hypothyroidism, unspecified; H91.90 Unspecified hearing loss, unspecified ear; H93.13 Tinnitus, bilateral
CPT/HCPCS: 99281-25

== ENCOUNTER 2022-11-28 04:15 | Day surgery (SDC) | payer OTHER, BC ==
[2022-11-27 14:41] VITALS: BMI 23.3
[~2022-11-28 04:15] MED LIST changes: -ACETAMINOPHEN 1000 MG/100 ML VIAL (NON FORMULARY) IVPB ONE; -ACETAMINOPHEN INJECTION 100 ML IVPB ONE; +DEXAMETHASONE SOD PHOSPHATE 10 MG/1 ML VIAL IVPUSH ONE; +IOHEXOL 180 MG/1 ML ML IJ ONE; +LIDOCAINE HCL 1% PRESERVATIVE FREE - 30ML VIAL IJ ONE; -LOSARTAN 50MG/HCTZ 12.5MG 1 TAB (FP) PO ONE; -SODIUM CHLORIDE 0.9% 500 ML INFUS.BAG IV ONE
[2022-11-28] MEDS ORDERED: BUPIVACAINE HCL/PF 0.75% 10 ML VIAL ONE (07:29)
[2022-11-28] MEDS ORDERED: DEXAMETHASONE SOD PHOSPHATE 10 MG/1 ML VIAL ONE ×2 (07:29→11:55)
[2022-11-28] MEDS ORDERED: LIDOCAINE HCL/PF 1% SDV 5ML VIAL ONE ×2 (07:29→11:54)
[2022-11-28] MEDS ORDERED: IOHEXOL 180 MG/1 ML ML IJ ONE (12:05)
[2022-11-28] MEDS ORDERED: DEXAMETHASONE SOD PHOSPHATE 10 MG/1 ML VIAL IVPUSH ONE (12:06)
[2022-11-28 12:46] VITALS: RESP 20
[2022-11-28 13:22] VITALS: BP 138/70; PULSE 80; TEMP 98
== END 2022-11-28 13:15 | disposition home or self-care (01) ==
LOC: JASU-SURG 04:15
PROVIDERS: ATTEND Pain Medicine Pain Medicine
PROC: 3E0R33Z Introduction of Anti-inflammatory into Spinal Canal, Percutaneous Approach (ICD-10-PCS; 2022-11-28)
PROC: 3E0R3BZ Introduction of Anesthetic Agent into Spinal Canal, Percutaneous Approach (ICD-10-PCS; principal; 2022-11-28 11:45)
DX: M54.16 Radiculopathy, lumbar region (principal)
CPT/HCPCS: 76000-TC-FY; J1100

== ENCOUNTER 2022-12-19 04:05 | Day surgery (SDC) | payer OTHER, BC ==
[2022-12-17 14:07] VITALS: BMI 22.6
[~2022-12-19 04:05] MED LIST changes: +BUPIVACAINE HCL/PF 0.5% (5MG/ML) 10 ML VIAL IJ ONE; -DEXAMETHASONE SOD PHOSPHATE 10 MG/1 ML VIAL IVPUSH ONE; +LIDOCAINE 1% P/F 10 MG/ML VIAL INF ONE; -LIDOCAINE HCL 1% PRESERVATIVE FREE - 30ML VIAL IJ ONE; +TRIAMCINOLONE ACET 40MG/1ML VIAL IM ONE
[2022-12-19] MEDS ORDERED: TRIAMCINOLONE ACET 40MG/1ML VIAL ONE (07:18)
[2022-12-19] MEDS ORDERED: LIDOCAINE HCL/PF 1% SDV 5ML VIAL ONE (07:18)
[2022-12-19] MEDS ORDERED: BUPIVACAINE HCL/PF 0.5% (5MG/ML) 10 ML VIAL ONE (07:18)
[2022-12-19 09:56] VITALS: RESP 18
[2022-12-19] MEDS ORDERED: LIDOCAINE 1% P/F 10 MG/ML VIAL INF ONE (11:51)
[2022-12-19] MEDS ORDERED: IOHEXOL 180 MG/1 ML ML IJ ONE (11:53)
[2022-12-19] MEDS ORDERED: BUPIVACAINE HCL/PF 0.5% (5MG/ML) 10 ML VIAL IJ ONE (11:56)
[2022-12-19] MEDS ORDERED: TRIAMCINOLONE ACET 40MG/1ML VIAL IJ ONE (11:56)
[2022-12-19 12:29] VITALS: BP 155/64; PULSE 79; TEMP 98.1
== END 2022-12-19 12:30 | disposition home or self-care (01) ==
LOC: JASU-SURG 04:05
PROVIDERS: ATTEND Pain Medicine Pain Medicine
PROC: 3E0U3BZ Introduction of Anesthetic Agent into Joints, Percutaneous Approach (ICD-10-PCS; 2022-12-19)
PROC: 3E0U33Z Introduction of Anti-inflammatory into Joints, Percutaneous Approach (ICD-10-PCS; principal; 2022-12-19 11:30)
DX: M53.3 Sacrococcygeal disorders, not elsewhere classified (principal)
CPT/HCPCS: 76000-TC-FY

== ENCOUNTER → 2024-05-12 | Day surgery (SDC) | payer OTHER, BC | END | disposition home or self-care (01) | LOC: JRADIR 10:02 | PROVIDERS: ATTEND Internal Medicine Endocrinology, Diabetes & Metabolism | PROC: 0G9G3ZX Drainage of Left Thyroid Gland Lobe, Percutaneous Approach, Diagnostic (ICD-10-PCS; principal; 2024-05-12) | DX: E04.1 Nontoxic single thyroid nodule (principal) | CPT/HCPCS: 10005; 76942; 88173; 88305-TC ==

== ENCOUNTER → 2024-08-25 | Day surgery (SDC) | payer OTHER, BC | END | disposition home or self-care (01) | LOC: JRADIR 09:17 | PROVIDERS: ATTEND Internal Medicine Endocrinology, Diabetes & Metabolism | PROC: 0GBG3ZX Excision of Left Thyroid Gland Lobe, Percutaneous Approach, Diagnostic (ICD-10-PCS; principal; 2024-08-25) | DX: E04.1 Nontoxic single thyroid nodule (principal) | CPT/HCPCS: 10005; 76942; 88173; 88305-TC ==